=== PATIENT | female | born 1990 ===

== ENCOUNTER → 2016-08-02 | Outpatient (CLI) | payer OTHER | END | disposition home or self-care (01) | LOC: C.PAPS 09:11 | PROVIDERS: ATTEND Physician Assistant | DX: Z12.4 Encounter for screening for malignant neoplasm of cervix (principal) ==

== ENCOUNTER → 2016-08-18 | Outpatient (CLI) | payer OTHER ==
[2016-08-21 02:32] LABS: CHLAMYDIA TRACH RNA*** NOT DETECTED (NOT DETECTED); GC (NEIS GONORRHOEAE)RNA** NOT DETECTED (NOT DETECTED)
== END | disposition home or self-care (01) ==
LOC: C.LABSPEC 11:36
PROVIDERS: ATTEND Physician Assistant
DX: Z30.430 Encounter for insertion of intrauterine contraceptive device (principal); Z11.3 Encounter for screening for infections with a predominantly sexual mode of transmission